=== PATIENT | female | born 1950 | race Caucasian/White ===

== ENCOUNTER → 2016-04-24 | Outpatient (CLI) | payer MEDICARE ==
[~2016-04-24] MED LIST: MELA1CAP2 PO; TRAM50TA2 PO
--- NOTE | 2016-04-25 06:27 | REP ---
Chest x-ray: Two views. History: Cough for a week. Comparison chest x-ray is from 06/30/2015. Findings: There are clips in right upper quadrant of the abdomen. Heart is not enlarged. Lungs are symmetrically aerated and free of infiltrate. Pleural angles are sharp. The aorta is calcific. No significant bony abnormality. Impression: No active disease. Signed by Ahmet Sumner MD 04/25/2016 10:04 A
== END ==
LOC: M WUC 18:17
PROVIDERS: ATTEND Physician Assistant
DX: R05 Cough (principal)

== ENCOUNTER → 2016-09-01 | Outpatient (CLI) | payer MEDICARE ==
[~2016-09-01] MED LIST changes: +CETI10TA PO; +OXYB5TAB10 PO; +POTA10CA PO; +TYLE325T5 PO
[2016-09-01 12:04] LABS: ANION GAP 2 MEQ/L (8-16); BLOOD UREA NITROGEN 7 MG/DL (7-18); CARBON DIOXIDE LEVEL 34 MEQ/L (21-32); CHLORIDE LEVEL 107 MEQ/L (98-107); CREATININE FOR GFR 0.53 MG/DL (0.55-1.02); GLOMERULAR FILTRATION RATE > 60.0 (>45); GLUCOSE, FASTING 84 MG/DL (80-110); SODIUM LEVEL 143 MEQ/L (136-145)
[2016-09-01 12:06] LABS: POTASSIUM SERUM 5.4 MEQ/L (3.5-5.1)
== END ==
LOC: M WUC 10:18
PROVIDERS: ATTEND Ophthalmology
DX: H02.422 Myogenic ptosis of left eyelid (principal); H02.834 Dermatochalasis of left upper eyelid; H02.831 Dermatochalasis of right upper eyelid

== ENCOUNTER → 2016-09-04 | Outpatient (REF) | payer MEDICARE ==
[2016-09-04 17:58] LABS: ANION GAP 7 MEQ/L (8-16); BLOOD UREA NITROGEN 11 MG/DL (7-18); CALCIUM LEVEL 9.1 MG/DL (8.8-10.2); CARBON DIOXIDE LEVEL 29 MEQ/L (21-32); CHLORIDE LEVEL 105 MEQ/L (98-107); CREATININE FOR GFR 0.59 MG/DL (0.55-1.02); GLOMERULAR FILTRATION RATE > 60.0 (>45); GLUCOSE, FASTING 105 MG/DL (80-110); POTASSIUM SERUM 4.5 MEQ/L (3.5-5.1); SODIUM LEVEL 141 MEQ/L (136-145)
== END ==
LOC: M SFHCPLAZ 12:44
PROVIDERS: ATTEND Family Medicine
DX: E87.5 Hyperkalemia (principal)

== ENCOUNTER → 2016-11-17 | Outpatient (REF) | payer MEDICARE | LOC: M LAB REF 15:43 | PROVIDERS: ATTEND Physician Assistant | DX: J02.9 Acute pharyngitis, unspecified (principal) ==

== ENCOUNTER 2016-11-23 07:46 | Inpatient (IN) | payer MEDICARE ==
[~2016-11-23] VITALS: Ht 170.2 cm; Wt 69.6 kg
[~2016-11-23 07:46] MED LIST changes: -CETI10TA PO; -OXYB5TAB10 PO; -POTA10CA PO; -TYLE325T5 PO
[2016-11-23] MEDS ORDERED: OXYB5TAB10 PO (07:59)
[2016-11-23] MEDS ORDERED: ACETAMINOPHEN TAB 650MG DOSE (2X325MG) PO ONE (08:15)
[2016-11-23 08:47] LABS: BASO % 0.4 % (0.0-1.0); EOS % 0.4 % (0.0-3.0); IMMATURE GRANULOCYTE % 0.3 % (0-0); LYMPH # 0.4 10^3/uL (1.5-4.5); LYMPH % 5.5 % (24.0-44.0); MEAN CORPUSCULAR HEMOGLOBIN 30.1 pg (27.0-33.0); MEAN CORPUSCULAR HGB CONC 33.3 g/dl (32.0-36.5); MEAN CORPUSCULAR VOLUME 90.5 fl (80.0-96.0); MONO # 0.4 10^3/uL (0.0-0.8); MONO % 5.5 % (0.0-5.0); NEUTROPHILS # 6.7 10^3/uL (1.8-7.7); NEUTROPHILS % 87.9 % (36.0-66.0); PLATELET COUNT, AUTOMATED 174 10^3/uL (150-450); RED CELL DISTRIBUTION WIDTH 12.8 % (11.5-14.5); WHITE BLOOD COUNT 7.7 10^3/uL (4.0-10.0)
--- NOTE | 2016-11-23 08:58 | REP ---
Portable chest x-ray: Single view. History: Dyspnea and cough. Comparison study August 01, 2016. Findings: EKG monitoring electrodes overlie the chest. Heart is not enlarged. Pulmonary vasculature is not increased. Pleural angles are sharp. No significant bony abnormality is seen. Impression: No active disease. Signed by Ahmet Sumner MD 11/23/2016 11:19 A
[2016-11-23] MEDS: guaiFENesin ER 600 MG TAB PO SCH ×2 (09:00→20:07)
[2016-11-23 09:20] LABS: ALBUMIN 3.7 GM/DL (3.2-5.2); ALBUMIN/GLOBULIN RATIO 1.23 (1.00-1.93); ALKALINE PHOSPHATASE 122 U/L (45-117); ALT/SGPT 64 U/L (12-78); ANION GAP 9 MEQ/L (8-16); AST/SGOT 82 U/L (15-37); BILIRUBIN,DIRECT 0.2 MG/DL (0.0-0.2); BILIRUBIN,TOTAL 0.6 MG/DL (0.2-1.0); BLOOD UREA NITROGEN 8 MG/DL (7-18); CALCIUM LEVEL 8.7 MG/DL (8.8-10.2); CARBON DIOXIDE LEVEL 29 MEQ/L (21-32); CHLORIDE LEVEL 101 MEQ/L (98-107); CREATININE FOR GFR 0.57 MG/DL (0.55-1.02); GLOMERULAR FILTRATION RATE > 60.0 (>45); GLUCOSE, FASTING 94 MG/DL (80-110); POTASSIUM SERUM 3.8 MEQ/L (3.5-5.1); SODIUM LEVEL 139 MEQ/L (136-145); TOTAL PROTEIN 6.7 GM/DL (6.4-8.2)
--- NOTE | 2016-11-23 11:14 | REP ---
CT of the chest without IV contrast: Comparison is the portable plain film study performed earlier today. There are no infiltrates or effusions. There are no masses or nodules. There is minor dependent atelectasis in the posterior lung toth with the patient supine on the scanning table. There is no mediastinal adenopathy. No axillary adenopathy. In the absence of IV contrast the study is insensitive for hilar adenopathy. The thoracic aorta is unremarkable except for occasional calcified atheroma. Cardiac size is normal. There is no pericardial effusion. Within the visualized upper abdomen. There are surgical clips in the gallbladder fossa. The visualized upper abdominal contents are otherwise unremarkable. Impression: Essentially negative CT study of the chest. There are no infiltrates, masses or effusions. There is minor discoid atelectasis in the posterior lung toth as described. Signed by Jm Malik MD 11/23/2016 11:06 A
[2016-11-23] MEDS ORDERED: SODIUM CHLORIDE 0.9% 1000 ML IV ONE (12:45)
[2016-11-23] MEDS ORDERED: TYLE325T5 PO (12:58)
[2016-11-23] MEDS ORDERED: CETI10TA PO (12:58)
[2016-11-23] MEDS ORDERED: ONDANSETRON 4MG/2ML VIAL (J2405) IV PRN (13:15)
[2016-11-23] MEDS ORDERED: IPRATROPIUM 0.5MG/ALBUTEROL 2.5MG INH SOL UD 3ML (DUONEB)(J7620) NEB PRN (13:15)
[2016-11-23] MEDS ORDERED: PERCOCET 5MG/325MG TAB PO PRN (13:15)
--- NOTE | 2016-11-23 13:54 | REP ---
Bilateral lower extremity Duplex Doppler venous ultrasound: Real time compression and duplex Doppler interrogation of the bilateral lower extremity deep venous system is performed. Bilaterally, the common femoral, superficial femoral and popliteal veins are fully compressible with transducer pressure and demonstrate normal spontaneous and phasic flow, without evidence of deep venous thrombosis. Impression: No evidence of deep venous thrombosis of the bilateral lower extremity femoral popliteal venous system. Signed by Jm Agustin MD 11/23/2016 01:46 P
--- NOTE | 2016-11-23 13:58 | HPE ---
DATE OF ADMISSION: 11/23/2016 PRIMARY CARE PHYSICIAN: Janet Benoit. CHIEF COMPLAINT: Shortness of breath. HISTORY OF PRESENT ILLNESS: The patient is a 66-year-old female with past one week of progressively worsening dyspnea on exertion associated with some chest pain. She also describes back pain and pain throughout her legs bilaterally. 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 There have been young children who have been sick. She lives at home with her sister. She reported has been having fever since yesterday, was so weak she could not stand which prompted her to present to the emergency room today. At the present time, she feels no different than the time of her arrival. She tells me she felt the same way this past summer when she was admitted at [facility] and told that she had sepsis secondary to pneumonia. She tells me that she feels the exact same way as she did at that point in time. PAST MEDICAL HISTORY: Urine urge incontinence. Environmental allergies. Fibromyalgia. ALLERGIES: SHRIMP, CONTRAST DYE, PENICILLIN. PAST SURGICAL HISTORY: Cholecystectomy 1995. Hysterectomy 1995. Right cataract surgery 2014. Left cataract surgery 2014. Eye lid surgery times four. Colonoscopy. section. Hernia repair. SOCIAL HISTORY: She has a 55 pack year tobacco history. Lives with her sister. Is a knitting teacher who is accompanied in the emergency room by two of her sisters and one of her close friends. HOME MEDICATIONS: - oxybutynin 5 mg by mouth twice daily started within the past one week - acetaminophen 650 mg four times daily as needed pain - [id number] mg by mouth daily PHYSICAL EXAMINATION: Temperature 102.1, respiratory rate 18, heart rate 84, blood pressure 139/67, 02 saturation 94% on 2 liters nasal cannula. General: She is an elderly female who appears older than her stated age. She is lying flat in bed. She appears lethargic, quite fatigued. Not acutely dyspneic. HEENT: Cranial nerves II-XII are grossly intact. She has moist mucous membranes. No cervical lymphadenopathy appreciated. No pharyngeal exudates. Cardiovascular exam: S1, S2 regular. Respiratory exam: She has prolonged expiratory phase with no audible wheeze. She does have pursed lips upon expiration and is somewhat barrel chested. Abdominal exam is benign. Extremities: No clubbing, cyanosis or appreciable edema. Exquisite tenderness out of proportion on palpation of her pretibial area and bilateral thighs. She has a 5 mm superficial ulcer in the right inguinal region mildly erythematous but does not appear to be acutely infected. Tenderness along her lumbar paraspinal muscles. No midline tenderness. LABORATORY STUDIES: WBC 7.7, hemoglobin 13.7, platelet count 174. Chemistry panel: Sodium 139, potassium 3.8, chloride 101, bicarbonate 29, BUN 8, creatinine 0.5. AST slightly elevated at 82. Alkaline phosphatase remained at 122. TSH is slightly depressed at 0.348. Microbiology: Influenza swab was negative. Sputum culture is negative. Blood cultures are drawn and pending. Respiratory, PCR panel is pending. She did have a CT scan of the chest which was essentially a negative CT study of the chest. No infiltrates, masses or effusions. Minor discoid atelectasis in the posterior lung toth. ASSESSMENT AND PLAN: This is a 66-year-old female with shortness of breath and fever. PROBLEMS: 1. Shortness of breath, fever and body aches. This appears to be most consistent with a viral upper respiratory infection. She does have some mild LFT abnormalities which could also be attributed to a viral infection. Respiratory and PCR panel is currently pending. Given the lack of leukocytosis, significant sepsis picture, at this time I will treat her supportively and hold off on any antibiotics. Followup her cultures and begin antibiotics if needed. Acetaminophen as needed. For the time being, I will stop her oxybutynin as this was a new medication for her so her shortness of breath may be related to this. My suspicious for pulmonary embolism is quite low but we will check a duplex of the lower extremities given her pain. I will checked an ambulating oxygen saturation in the morning. She has a significant tobacco history. She may have some mild undiagnosed chronic obstructive pulmonary disease (COPD). I will provide her with nebulizer treatments in order to best optimize her respiratory status. Will check an ESR, CMP and admit her to progressive care unit and trend her troponins. Should her workup be negative and she not require any oxygen, I suspect she may be able to discharged home as early as tomorrow. She will be admitted to observation status to Dr. Mckeon's service. 2. Urge incontinence. We are holding her oxybutynin. could consider resuming it when improved versus trying alternative agent. 3. Environmental allergies. Continue with sertraline. 4. Deep venous thrombosis (DVT) prophylaxis. She will be on Lovenox. MTDD
[2016-11-23] MEDS ORDERED: NS 1,000 ML IV SCH (14:00)
[2016-11-23 14:15] VITALS: BP 129/60
[2016-11-23] MEDS: IBUPROFEN 400 MG TAB PO SCH ×2 (14:18→21:14)
[2016-11-23 15:10] LABS: THYROXINE (T4) 9.2 UG/DL (4.5-12.0)
[2016-11-23 16:00] VITALS: BP 128/60
[2016-11-23 17:49] VITALS: BP 120/56; PULSE 70
--- NOTE | 2016-11-23 19:35 | ECGEPIP ---
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
--- NOTE | 2016-11-23 19:37 | ECGEPIP ---
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
[2016-11-23 20:00] VITALS: BP_SYST 120; BP_SYST 126; BP_DIAS 56; BP_DIAS 58; PULSE 70
[2016-11-23] MEDS: IPRATROPIUM 0.5MG/ALBUTEROL 2.5MG INH SOL UD 3ML (DUONEB)(J7620) NEB SCH (20:00)
[2016-11-23] MEDS: ACETAMINOPHEN TAB 650MG DOSE (2X325MG) PO PRN (20:07)
[2016-11-24] VITALS: BP 119/63
[2016-11-24] MEDS: CEPACOL LOZENGE PO PRN ×2 (02:38→14:56)
[2016-11-24 04:00] VITALS: BP 118/58
[2016-11-24] MEDS: ACETAMINOPHEN TAB 650MG DOSE (2X325MG) PO PRN (04:26)
[2016-11-24] MEDS: IBUPROFEN 400 MG TAB PO SCH (05:16)
[2016-11-24 05:32] LABS: MEAN CORPUSCULAR HEMOGLOBIN 29.9 pg (27.0-33.0); MEAN CORPUSCULAR HGB CONC 32.6 g/dl (32.0-36.5); MEAN CORPUSCULAR VOLUME 91.8 fl (80.0-96.0); RED CELL DISTRIBUTION WIDTH 12.8 % (11.5-14.5); WHITE BLOOD COUNT 3.9 10^3/uL (4.0-10.0)
[2016-11-24 05:55] LABS: ALBUMIN/GLOBULIN RATIO 1.11 (1.00-1.93); ALKALINE PHOSPHATASE 131 U/L (45-117); ALT/SGPT 144 U/L (12-78); ANION GAP 7 MEQ/L (8-16); AST/SGOT 166 U/L (15-37); BILIRUBIN,TOTAL 0.3 MG/DL (0.2-1.0); BLOOD UREA NITROGEN 7 MG/DL (7-18); CALCIUM LEVEL 8.1 MG/DL (8.8-10.2); CARBON DIOXIDE LEVEL 27 MEQ/L (21-32); CHLORIDE LEVEL 103 MEQ/L (98-107); CREATININE FOR GFR 0.35 MG/DL (0.55-1.02); GLOMERULAR FILTRATION RATE > 60.0 (>45); GLUCOSE, FASTING 91 MG/DL (80-110); POTASSIUM SERUM 3.3 MEQ/L (3.5-5.1); SODIUM LEVEL 137 MEQ/L (136-145); TOTAL PROTEIN 5.7 GM/DL (6.4-8.2)
--- NOTE | 2016-11-24 06:04 | ECGEPIP ---
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
[2016-11-24 07:30] VITALS: BP 115/62
[2016-11-24] MEDS: guaiFENesin ER 600 MG TAB PO SCH ×2 (08:26→20:35)
[2016-11-24] MEDS: ENOXAPARIN 40 MG/0.4 ML SYRINGE (J1650) SC SCH (08:26)
[2016-11-24] MEDS: CETIRIZINE (ZyrTEC) 10 MG TAB PO SCH (08:27)
[2016-11-24] MEDS: IPRATROPIUM 0.5MG/ALBUTEROL 2.5MG INH SOL UD 3ML (DUONEB)(J7620) NEB SCH ×3 (08:35→20:07)
[2016-11-24 12:45] VITALS: BP 120/56
--- NOTE | 2016-11-24 14:28 | IPN ---
DATE: 11/24/2016 Jewels was admitted with shortness of breath. She has spasms and pains in her legs and was having some nonanginal sounding chest pain. She had sepsis with pneumonia so she came to the emergency room fearing she had a recurrence of this. Chest x-ray and CT scan of the chest have not shown any infiltrate, but she does have Rhinovirus/Enterovirus on respiratory panel. PHYSICAL EXAMINATION: Afebrile. Vital signs stable. Lungs clear. Heart regular rhythm. Abdomen soft. Nontender. No peripheral edema. Nontender to palpate thighs or calves. No joint effusions or swelling. LABS: White count 3.9, hemoglobin 11.6, platelets 140. Sed rate 11. Sodium 137, potassium 3.3, BUN 7, creatinine 0.3, glucose 91. AST and ALT both elevated. Bilirubin normal. IMPRESSION: 1. Viral syndrome with respiratory symptoms and myalgias. Symptomatic treatment only. She is on some Advil. I am going to give her a dose of Toradol due to the myalgias. CPK is low. 2. Abnormal liver function tests. Liver ultrasound ordered. Probably from the viral syndrome. 3. Hypokalemia. Supplemental potassium has been given. She should be stable for discharge tomorrow.
[2016-11-24] MEDS: KETOROLAC 30 MG/ML VIAL (J1885) IV PRN (14:56)
[2016-11-24] MEDS: POTASSIUM CHLORIDE 10 MEQ SR TABLET PO SCH ×2 (14:56→20:35)
[2016-11-24 15:55] VITALS: BP 126/66
--- NOTE | 2016-11-24 17:33 | ECGEPIP ---
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
--- NOTE | 2016-11-24 17:59 | REP ---
REASON FOR EXAM: Elevated LFTs. COMPARISON: None. The patient is status-post cholecystectomy. Multiple ultrasonographic images of the liver show the hepatic parenchymal echo pattern to be within normal limits. There is no intrahepatic ductal dilatation. The common bile is mildly dilated at 1.3 cm but this is at least in part secondary to the patient's post cholecystectomy state. The imaged pancreas and right kidney are normal. IMPRESSION: There is evidence of mild common bile duct dilatation as described above but due to the patient status-post cholecystectomy state this could be within normal limits and needs to be correlated clinically with appropriate followup. If necessary obtain MRCP for further evaluation. Signed by Ernie Farley DO 11/24/2016 07:17 P
[2016-11-24 21:26] VITALS: BP 126/58
[2016-11-25] MEDS: KETOROLAC 30 MG/ML VIAL (J1885) IV PRN ×2 (00:14→09:10)
[2016-11-25 00:34] VITALS: BP 135/66
[2016-11-25] MEDS: IPRATROPIUM 0.5MG/ALBUTEROL 2.5MG INH SOL UD 3ML (DUONEB)(J7620) NEB SCH ×3 (02:00→14:00)
[2016-11-25] MEDS: ACETAMINOPHEN TAB 650MG DOSE (2X325MG) PO PRN (02:58)
[2016-11-25 03:56] VITALS: BP 139/65
[2016-11-25 05:42] LABS: MEAN CORPUSCULAR HGB CONC 32.4 g/dl (32.0-36.5); MEAN CORPUSCULAR VOLUME 92.7 fl (80.0-96.0); RED CELL DISTRIBUTION WIDTH 13.1 % (11.5-14.5); WHITE BLOOD COUNT 6.1 10^3/uL (4.0-10.0)
[2016-11-25 06:01] LABS: ALBUMIN 2.9 GM/DL (3.2-5.2); ALKALINE PHOSPHATASE 122 U/L (45-117); ALT/SGPT 90 U/L (12-78); ANION GAP 8 MEQ/L (8-16); AST/SGOT 57 U/L (15-37); BILIRUBIN,TOTAL 0.2 MG/DL (0.2-1.0); CALCIUM LEVEL 7.8 MG/DL (8.8-10.2); CARBON DIOXIDE LEVEL 24 MEQ/L (21-32); CHLORIDE LEVEL 108 MEQ/L (98-107); GLOMERULAR FILTRATION RATE > 60.0 (>45); GLUCOSE, FASTING 84 MG/DL (80-110); MAGNESIUM LEVEL 1.9 MG/DL (1.8-2.4); SODIUM LEVEL 140 MEQ/L (136-145); TOTAL PROTEIN 5.8 GM/DL (6.4-8.2)
[2016-11-25 06:18] LABS: BLOOD UREA NITROGEN 12 MG/DL (7-18); POTASSIUM SERUM 4.2 MEQ/L (3.5-5.1)
--- NOTE | 2016-11-25 07:51 | EEG ---
DATE OF PROCEDURE: 11/24/2016 REFERRING PHYSICIAN: Dr. Andrea Mckeon DIAGNOSIS: Unresponsiveness. EEG NUMBER: [id number]. HISTORY: Patient is a 66-year-old woman who was admitted at [facility] due to an episode of passing out. She is currently taking ibuprofen and Lovenox, Percocet etc. TECHNICAL DESCRIPTION: This digital EEG was recorded by 21 scalp, ear and two EKG electrodes and was reviewed in bipolar and referential montages following reformatting in 10-20 international electrode placement system. INTERPRETATION: Patient was noted to be in awake and drowsy states during this EEG. Resting awake background rhythm consisted of well-formed posterior dominant rhythm with anterior/posterior gradient comprising of 9 Hz alpha activity measuring 15-40 microvolts in amplitude, which was symmetric and reactive to eye opening. Attenuation of posterior dominant was seen during transition into drowsiness. Anteriorly low voltage and mixed frequency activity was noted. Stage I and II sleep were reviewed and were symmetric bilaterally. Hyperventilation could not be performed. Photic stimulation 3-30 Hz elicited symmetric photic driving especially at mid frequencies. No focal, lateralizing or epileptiform abnormalities were seen. No clinical or electrographic seizures were recorded. EKG revealed normal sinus rhythm. CONCLUSION: This EEG in awake, drowsy states, stage I and II sleep is within normal limits.
[2016-11-25 08:00] VITALS: BP 143/63
[2016-11-25] MEDS: CETIRIZINE (ZyrTEC) 10 MG TAB PO SCH (09:07)
[2016-11-25] MEDS: guaiFENesin ER 600 MG TAB PO SCH (09:08)
[2016-11-25] MEDS: ENOXAPARIN 40 MG/0.4 ML SYRINGE (J1650) SC SCH (09:08)
[2016-11-25] MEDS: POTASSIUM CHLORIDE 10 MEQ SR TABLET PO SCH (09:09)
[2016-11-25] MEDS: CEPACOL LOZENGE PO PRN (11:17)
[2016-11-25 12:00] VITALS: BP 142/72
--- NOTE | 2016-11-25 14:14 | DS.PDOC ---
Discharge Summary General Date of Admission Nov 24, 2016 at 13:32 Date of Discharge 11/25/2016 Primary Care Physician: JANET BENOIT MD Attending Physician: Rhys Cuellar MD Discharge Summary ADMITTING DIAGNOSES: 1. Dyspnea, with associated fever and body aches. 2. Urge incontinence. 3. Environmental allergies. DISCHARGE DIAGNOSES: 1. Viral syndrome with respiratory symptoms and myalgias. 2. Abnormal liver function tests. 3. Hypokalemia. PROCEDURES PERFORMED DURING STAY: Electroencephalogram. ADMISSION HISTORY: Ms. Cassandra oconnor came to the emergency department with symptoms that felt to her similar to when she had pneumonia 3-4 months ago. She had an episode of lightheadedness associated with this and was concerned. Please see the admission history and physical for the remaining details. HOSPITAL COURSE: Jewels was observed in the hospital and had no further symptoms. An EEG was done that was normal. Her respiratory panel returned rhinovirus and enterovirus. DISCHARGE CONDITION: Stable. FOLLOW-UP: Prior to discharge an appointment was scheduled with Dr. Janet Benoit on 12/01/16 at 11:00 AM. DIET: As tolerated. ACTIVITY: As tolerated. DISCHARGE MEDICATIONS: Please see below. ALLERGIES: Please see below. LABORATORY DATA: Please see below. IMAGING: Chest x-ray, chest CT, lower extremity venous Doppler ultrasound, liver ultrasound Vital Signs/I&Os Vital Signs Date Time Temp Pulse Resp B/P (MAP) Pulse Ox O2 Delivery O2 Flow Rate FiO2 11/25/16 12:00 98.6 79 18 142/72 (95) 95 Room Air 11/24/16 07:30 3.0 I&O- Last 24 Hours up to 6 AM 11/26/16 06:00 Intake Total 240 ml Balance 240 ml Laboratory Data Labs 24H Laboratory Tests 2 11/25/16 04:59: Anion Gap 8, Glomerular Filtration Rate > 60.0, Blood Urea Nitrogen 12#, Creatinine 0.40L, Sodium Level 140, Potassium Level 4.2#, Chloride Level 108H, Carbon Dioxide Level 24, Calcium Level 7.8L, Aspartate Amino Transf (AST/SGOT) 57H, Alanine Aminotransferase (ALT/SGPT) 90H, Alkaline Phosphatase 122H, Total Bilirubin 0.2, Total Protein 5.8L, Albumin 2.9L, Magnesium Level 1.9, Albumin/ Globulin Ratio 1.00 CBC/BMP Laboratory Tests 11/25/16 04:59 Red Blood Count 3.83 L, Mean Corpuscular Volume 92.7, Mean Corpuscular Hemoglobin 30.0, Mean Corpuscular Hemoglobin Concent 32.4, Red Cell Distribution Width 13.1, Calcium Level 7.8 L, Aspartate Amino Transf (AST/SGOT) 57 H, Alanine Aminotransferase (ALT/SGPT) 90 H, Alkaline Phosphatase 122 H, Total Bilirubin 0.2, Total Protein 5.8 L, Albumin 2.9 L Microbiology Microbiology 11/23/16 Blood Culture - Preliminary, Resulted No Growth after 48 hours. All Specime... 11/23/16 Blood Culture - Preliminary, Resulted No Growth after 48 hours. All Specime... 11/23/16 Gram Stain - Final, Complete 11/23/16 Sputum Culture - Final, Complete 11/23/16 Influenza Virus Type A Antigen - Final, Complete 11/23/16 Influenza Virus Type B Antigen - Final, Complete 11/23/16 Respiratory Virus Panel (PCR) (CUAUHTEMOC) - Final, Complete Human Rhinovirus/Enterovirus Discharge Medications Scheduled Cetirizine HCl (Cetirizine HCl) 10 Mg Tab, 10 MG PO DAILY, (Reported) Oxybutynin Chloride (Oxybutynin Chloride) 5 Mg Tab, 5 MG PO BID, (Reported) Potassium Chloride (Klor-Con M10) 10 Meq Tabcr, 10 MEQ PO DAILY Scheduled PRN Acetaminophen (Tylenol) 325 Mg Tab, 650 MG PO QID PRN for PAIN, (Reported) Allergies Coded Allergies: Iodine (Verified Allergy, Unknown, 04/15/14) Penicillins (Verified Allergy, Unknown, RASH, 04/26/15) Shrimp (Verified Allergy, Unknown, ANAPHYLAXIS, 04/26/15) Rhys Cuellar MD Nov 25, 2016 14:14
[2016-11-25] MEDS ORDERED: POTA10CA PO (14:25)
== END 2016-11-25 14:59 | disposition home or self-care (01) | DRG 153 ==
LOC: M ED 07:46 → M ED INP 13:15 → M PCU 19:05 → OBSVTOIN 11-24 13:32 → M PCU 11-25 03:13
PROVIDERS: ADMIT Internal Medicine; ATTEND Family Medicine
DX: J06.9 Acute upper respiratory infection, unspecified (principal); B34.8 Other viral infections of unspecified site; R94.5 Abnormal results of liver function studies; M79.7 Fibromyalgia; E87.6 Hypokalemia; N39.41 Urge incontinence; Z88.0 Allergy status to penicillin; Z91.041 Radiographic dye allergy status; Z91.013 Allergy to seafood; Z90.49 Acquired absence of other specified parts of digestive tract; Z90.710 Acquired absence of both cervix and uterus; Z98.41 Cataract extraction status, right eye; Z98.42 Cataract extraction status, left eye; F17.210 Nicotine dependence, cigarettes, uncomplicated; Z79.899 Other long term (current) drug therapy

== ENCOUNTER 2017-01-03 10:25 | Emergency (ER) | payer MEDICARE ==
[~2017-01-03] VITALS: Ht 167.6 cm; Wt 67.2 kg
[~2017-01-03 10:25] MED LIST changes: +CETI10TA PO; +OXYB5TAB10 PO; +POTA10CA PO; +TYLE325T5 PO
[2017-01-03 11:10] LABS: BASO % 0.2 % (0.0-1.0); EOS # 0.1 10^3/uL (0.0-0.50); EOS % 0.7 % (0.0-3.0); IMMATURE GRANULOCYTE % 0.4 % (0-0); LYMPH # 0.7 10^3/uL (1.5-4.5); LYMPH % 5.2 % (24.0-44.0); MEAN CORPUSCULAR HEMOGLOBIN 29.5 pg (27.0-33.0); MEAN CORPUSCULAR HGB CONC 32.5 g/dl (32.0-36.5); MONO # 0.3 10^3/uL (0.0-0.8); MONO % 2.3 % (0.0-5.0); NEUTROPHILS # 12.3 10^3/uL (1.8-7.7); NEUTROPHILS % 91.2 % (36.0-66.0); PLATELET COUNT, AUTOMATED 299 10^3/uL (150-450); RED CELL DISTRIBUTION WIDTH 12.5 % (11.5-14.5); WHITE BLOOD COUNT 13.5 10^3/uL (4.0-10.0)
[2017-01-03 11:34] LABS: ANION GAP 3 MEQ/L (8-16); BLOOD UREA NITROGEN 9 MG/DL (7-18); CALCIUM LEVEL 8.5 MG/DL (8.8-10.2); CARBON DIOXIDE LEVEL 31 MEQ/L (21-32); CHLORIDE LEVEL 104 MEQ/L (98-107); GLOMERULAR FILTRATION RATE > 60.0 (>45); GLUCOSE, FASTING 95 MG/DL (80-110); POTASSIUM SERUM 4.2 MEQ/L (3.5-5.1); SODIUM LEVEL 138 MEQ/L (136-145)
--- NOTE | 2017-01-03 11:46 | REP ---
Clinical: Chest pain . Comparison: 11/23/2016 . Findings: The mediastinum and cardiac silhouette are stable and within normal limits for portable technique. The lung toht are clear without acute consolidation, effusion, or pneumothorax. Skeletal structures are intact. Impression: No acute cardiopulmonary process appreciated. Signed by Nilesh Martin MD 01/03/2017 11:37 A
[2017-01-03] MEDS ORDERED: methylPREDNISolone INJ 125 MG/2 ML VIAL (J2930) IV ONE (12:45)
--- NOTE | 2017-01-03 14:23 | ECGEPIP ---
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
--- NOTE | 2017-01-03 14:24 | ECGEPIP ---
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
[2017-01-03] MEDS ORDERED: PRED10TA2 PO (16:01)
[2017-01-03 16:14] VITALS: BP 126/56
== END 2017-01-03 16:24 | disposition home or self-care (01) ==
LOC: M ED 10:25
DX: J20.9 Acute bronchitis, unspecified (principal); J01.90 Acute sinusitis, unspecified; M79.7 Fibromyalgia; F17.210 Nicotine dependence, cigarettes, uncomplicated
CPT/HCPCS: 36415; 71010; 80048; 82550; 82553; 83880; 84484; 85025; 93005; 93041; 94760; 96374; 99285; J2930

== ENCOUNTER → 2017-03-02 | Outpatient (CLI) | payer MEDICARE ==
[2017-03-02 16:29] LABS: ANION GAP 6 MEQ/L (8-16); BLOOD UREA NITROGEN 7 MG/DL (7-18); CARBON DIOXIDE LEVEL 31 MEQ/L (21-32); CHLORIDE LEVEL 100 MEQ/L (98-107); GLOMERULAR FILTRATION RATE > 60.0 (>45); GLUCOSE, FASTING 97 MG/DL (80-110); POTASSIUM SERUM 4.4 MEQ/L (3.5-5.1); SODIUM LEVEL 137 MEQ/L (136-145)
[2017-03-02 16:33] LABS: BASO % 0.3 % (0.0-1.0); EOS # 0.1 10^3/uL (0.0-0.50); HEMATOCRIT 41.6 % (36.0-47.0); HEMOGLOBIN 13.3 g/dl (12.0-16.0); IMMATURE GRANULOCYTE # 0.1 10^3/uL (0-0); IMMATURE GRANULOCYTE % 0.4 % (0-0); LYMPH # 1.6 10^3/uL (1.5-4.5); LYMPH % 11.3 % (24.0-44.0); MEAN CORPUSCULAR HEMOGLOBIN 29.6 pg (27.0-33.0); MEAN CORPUSCULAR VOLUME 92.4 fl (80.0-96.0); MONO % 7.3 % (0.0-5.0); NEUTROPHILS # 11.2 10^3/uL (1.8-7.7); NEUTROPHILS % 79.7 % (36.0-66.0); PLATELET COUNT, AUTOMATED 215 10^3/uL (150-450); RED CELL DISTRIBUTION WIDTH 12.9 % (11.5-14.5); WHITE BLOOD COUNT 14.1 10^3/uL (4.0-10.0)
== END ==
LOC: M WUC 12:31
DX: J01.10 Acute frontal sinusitis, unspecified (principal); R07.81 Pleurodynia
CPT/HCPCS: 80048

== ENCOUNTER → 2017-10-07 | Outpatient (CLI) | payer MEDICARE ==
[2017-10-07 17:34] LABS: CHOLESTEROL LEVEL 212 MG/DL (<200); CHOLESTEROL RISK RATIO 3.719 (<5); GLUCOSE,RANDOM 88 MG/DL (LESS THAN 200); HDL CHOLESTEROL 57 MG/DL (>40); LDL CHOLESTEROL 132.6 MG/DL (<100); NON-HDL-C 155 MG/DL; TRIGLYCERIDES LEVEL 112 MG/DL (<150)
== END ==
LOC: M LRY 10:42
DX: Z13.220 Encounter for screening for lipoid disorders (principal); Z13.1 Encounter for screening for diabetes mellitus; Z79.899 Other long term (current) drug therapy
CPT/HCPCS: 82947

== ENCOUNTER → 2018-08-01 | Outpatient (CLI) | payer MEDICARE ==
[~2018-08-01] MED LIST changes: +KLOR10TA76 PO; -POTA10CA PO; +PRED10TA2 PO
--- NOTE | 2018-08-01 14:37 | REP ---
Show chest two views HISTORY: Cough Comparison: 03/02/2017 The lungs are hyperinflated. The lungs are clear. A small right pleural effusion is present. The heart is normal in size. The pulmonary vasculature is normal in appearance. The bony structure is intact. IMPRESSION: Small right pleural effusion. Electronically Signed by Javi Barron MD 08/01/2018 02:29 P
== END ==
LOC: M WUC 13:56
PROVIDERS: ATTEND Physician Assistant
DX: J90 Pleural effusion, not elsewhere classified (principal)

== ENCOUNTER → 2018-08-08 | Outpatient (CLI) | payer MEDICARE ==
--- NOTE | 2018-08-08 18:26 | REP ---
Chest x-ray: Two views. History: Acute bronchitis. Comparison study: August 01, 2018. Findings: The lungs remain hyperinflated but free of infiltrate. There is blunting of the right lateral and posterior pleural angles indicating a small right pleural effusion. This is unchanged. The left pleural angles appear sharp. The cardiothoracic ratio is normal measured at 45.2% on the frontal view. Pulmonary vasculature is not increased. There is diffuse osteopenia. Thoracic vertebral body heights are preserved. The thoracic aorta shows some calcification. Impression: Blunting of the right lateral pleural angle indicating a small right effusion. Hyperinflation. Otherwise no active disease. Electronically Signed by Ahmet Sumner MD 08/08/2018 07:57 P
== END ==
LOC: M WUC 17:06
PROVIDERS: ATTEND Physician Assistant
DX: R91.8 Other nonspecific abnormal finding of lung field (principal)

== ENCOUNTER → 2018-10-01 | Outpatient (CLI) | payer MEDICARE ==
[2018-10-01 17:00] LABS: ALBUMIN 3.9 GM/DL (3.2-5.2); BILIRUBIN,DIRECT 0.1 MG/DL (0.0-0.2); BILIRUBIN,TOTAL 0.4 MG/DL (0.2-1.0); TOTAL PROTEIN 6.5 GM/DL (6.4-8.2)
--- NOTE | 2018-10-02 08:28 | REP ---
REASON: Followup pleural effusion. COMPARISON: 08/08/2018 The patchy opacity seen previously in the right lower lobe with cardiophrenic angle and costophrenic angle blunting has resolved. The lung toth are clear but hyperexpanded status quo. The heart is not enlarged. The osseous structures are stable and intact. IMPRESSION: No acute cardiopulmonary disease. Improvement as described above. Electronically Signed by Ernie Farley DO 10/02/2018 09:46 A
== END ==
LOC: M WUC 13:33
PROVIDERS: ATTEND Family Medicine
DX: J90 Pleural effusion, not elsewhere classified (principal); E78.2 Mixed hyperlipidemia

== ENCOUNTER 2018-12-17 08:02 | Day surgery (SDC) | payer MEDICARE ==
[~2018-12-17] VITALS: Ht 160 cm; Wt 59.4 kg
[~2018-12-17 08:02] MED LIST changes: +DIPH25CA32 PO; +GNP650TA8 PO; +NS 1,000 ML IV ONE; +PRAV40TA2 PO; +VENTAER INH
[2018-12-17] MEDS ORDERED: PROPOFOL 200 MG/20 ML VIAL As Ordered ONE ×3 (09:32→09:56)
[2018-12-17] MEDS ORDERED: LIDOCAINE 2% INJ 100 MG/5 ML SDV (FOR ANES.) As Ordered ONE (09:32)
--- NOTE | 2018-12-17 10:09 | ROOR ---
Patient Name: Jewels Trujillo Procedure Date: 12/17/2018 9:29 AM Date of : 1950 Age: 68 Room: [facility] Gender: Female Note Status: Finalized Procedure: Total Colonoscopy to Cecum + Cold Snare Polypectomy + Hemoclip Indications: High risk colon cancer surveillance: Personal history of colonic polyps, Last colonoscopy: 2015 Providers: Jacob Barone MD Referring MD: Janet Benoit MD Requesting Provider: Medicines: Monitored Anesthesia Care Complications: No immediate complications. Procedure: Pre-Anesthesia Assessment: - The heart rate, respiratory rate, oxygen saturations, blood pressure, adequacy of pulmonary ventilation, and response to care were monitored throughout the procedure. The Colonoscope was introduced through the anus and advanced to the cecum, identified by appendiceal orifice and ileocecal valve. The colonoscopy was performed without difficulty. The patient tolerated the procedure well. The quality of the bowel preparation was excellent. Findings: The perianal and digital rectal examinations were normal. Non-bleeding internal hemorrhoids were found during retroflexion. The hemorrhoids were small and Grade I (internal hemorrhoids that do not prolapse). Multiple small and large-mouthed diverticula were found in the recto-sigmoid colon, sigmoid colon and descending colon. A small polyp was found in the mid ascending colon. The polyp was sessile. The polyp was removed with a jumbo cold forceps. Resection and retrieval were complete. Multiple sessile polyps were found at 60 cm proximal to the anus. The polyps were small in size. These polyps were removed with a cold snare. Resection and retrieval were complete. A small polyp was found at 30 cm proximal to the anus. The polyp was sessile. The polyp was removed with a cold snare. Resection and retrieval were complete. To prevent bleeding after the polypectomy, one hemostatic clip was successfully placed (MR conditional). There was no bleeding at the end of the procedure. The exam was otherwise without abnormality on direct and retroflexion views. Impression: - Non-bleeding internal hemorrhoids. - Diverticulosis in the recto-sigmoid colon, in the sigmoid colon and in the descending colon. - One small polyp in the mid ascending colon, removed with a jumbo cold forceps. Resected and retrieved. - Multiple small polyps at 60 cm proximal to the anus, removed with a cold snare. Resected and retrieved. - One small polyp at 30 cm proximal to the anus, removed with a cold snare. Resected and retrieved. Clip (MR conditional) was placed. - The examination was otherwise normal on direct and retroflexion views. - The exam was otherwise normal to the cecum. Recommendation: - Patient has a contact number available for emergencies. The signs and symptoms of potential delayed complications were discussed with the patient. Return to normal activities tomorrow. Written discharge instructions were provided to the patient. - High fiber diet. - Discharge patient to home. - Continue present medications. - Await pathology results. - Telephone GI clinic for pathology results in 1 week. - Repeat colonoscopy for surveillance based on pathology results. - Return to referring physician. - Check Portal Online for Path Results.([email or web address] - The findings and recommendations were discussed with the patient's family. Jacob Barone MD Jacob Barone MD 12/17/2018 10:09:13 AM Electronically signed by Jacob Barone MD Number of Addenda: 0 Note Initiated On: 12/17/2018 9:29 AM Estimated Blood Loss: Estimated blood loss: none.
[2018-12-17 10:45] VITALS: BP 143/63
== END 2018-12-17 10:52 | disposition home or self-care (01) ==
LOC: M OPP 08:02
PROVIDERS: ATTEND Internal Medicine Gastroenterology
DX: Z12.11 Encounter for screening for malignant neoplasm of colon (principal); Z86.010 Personal history of colon polyps; K64.0 First degree hemorrhoids; K63.5 Polyp of colon; K57.30 Diverticulosis of large intestine without perforation or abscess without bleeding; F17.210 Nicotine dependence, cigarettes, uncomplicated; Z79.891 Long term (current) use of opiate analgesic; Z79.899 Other long term (current) drug therapy; Z91.030 Bee allergy status; Z88.3 Allergy status to other anti-infective agents; Z88.5 Allergy status to narcotic agent

== ENCOUNTER → 2019-10-08 | Outpatient (CLI) | payer MEDICARE ==
[~2019-10-08] MED LIST changes: -NS 1,000 ML IV ONE
--- NOTE | 2019-11-17 08:55 | REP ---
LUMBAR SPINE SERIES: 5-VIEWS HISTORY: Sprain. Low back pain. COMPARISON: None. FINDINGS: There are surgical clips in the right upper quadrant of the abdomen. There is some diffuse osteopenia. Lumbar vertebral body heights are preserved. Alignment is normal. Disc spaces are maintained. There is some disc space narrowing at L3- 4 and L4-5. Vascular calcification is noted in a normal caliber aorta. There is no evidence of spondylolysis or spondylolisthesis. There is osteoarthritic facet narrowing and mild hypertrophy bilaterally at L5-S1 and to a lesser extent, at L4-5. Sacrum and SI joints are intact. Psoas margins are symmetric. IMPRESSION: Mild degenerative spondylosis changes. No acute bony abnormality. Diffuse osteopenia. MTDD
== END ==
LOC: M WUC 15:17
PROVIDERS: ATTEND Physician Assistant
DX: S33.5XXA Sprain of ligaments of lumbar spine, initial encounter (principal); M47.816 Spondylosis without myelopathy or radiculopathy, lumbar region; M85.88 Other specified disorders of bone density and structure, other site; X58.XXXA Exposure to other specified factors, initial encounter; Y92.9 Unspecified place or not applicable

== ENCOUNTER → 2019-11-21 | Outpatient (CLI) | payer MEDICARE ==
--- NOTE | 2019-11-21 10:44 | REPVR ---
PROCEDURE INFORMATION: Exam: MR Cervical Spine Without Contrast Exam date and time: 11/21/2019 8:49 AM Age: 69 years old Clinical indication: Pain; Cervicalgia; Additional info: Cervicalgia / pain thoracic spine ? compression [id number] 1 TECHNIQUE: Imaging protocol: Multiplanar magnetic resonance images of the cervical spine without contrast. COMPARISON: No relevant prior studies available. FINDINGS: Vertebrae: There is straightening of the cervical spine which could be secondary to positioning or muscle spasm. The cervical vertebral bodies are normal height and alignment.No acute fracture or dislocation is seen.The atlantoaxial articulation is normal. Spinal cord: The cervical spinal cord is normal in thickness and signal intensity.There is no cord compression or intramedullary signal abnormality. Spinal epidural space: There is no evidence for epidural mass or hemorrhage. C2-C3: No significant disc disease. No significant spinal stenosis. C3-C4: There is a mild diffuse posterior bulge causing mild effacement of the thecal sac.The facet joints demonstrate mild degenerative hypertrophy and sclerosis.There is mild bilateral foraminal stenosis. C4-C5: There is a mild diffuse posterior bulge causing mild effacement of the thecal sac.The facet joints demonstrate mild degenerative hypertrophy and sclerosis.There is mild bilateral foraminal stenosis. C5-C6: There is a mild diffuse posterior bulge causing mild effacement of the thecal sac. Small posterior central protrusion.The facet joints demonstrate moderate degenerative narrowing and sclerosis.There is no evidence of spinal canal narrowing. There is mild bilateral foraminal stenosis. C6-C7: Moderately reduced in height and T2 signal indicating degeneration. Mild degenerative endplate changes.There is a mild diffuse posterior bulge causing mild effacement of the thecal sac.The facet joints demonstrate moderate degenerative narrowing and sclerosis.There is no evidence of spinal canal narrowing.7 mm T2 hyperintense perineural cysts are noted in bilateral neural foramina causing compression of the exiting nerve roots. C7-T1: There is no significant degenerative disc herniation.The spinal canal and neural foramina are patent and without significant stenosis. Brain: The visualized brain parenchyma is unremarkable. Vertebral arteries: Expected flow voids in the vertebral arteries. Soft tissues: The prevertebral soft tissues appear normal. IMPRESSION: 1. MRI of the cervical spine reveals multilevel degenerative spondylitic changes and degenerative disc disease as described above. No acute fracture or dislocation is seen. 2. The cervical spinal cord is normal in thickness and signal intensity.There is no cord compression or intramedullary signal abnormality. Electronically signed by: Manny Johnson On 11/21/2019 10:44:08 AM
--- NOTE | 2019-11-28 12:41 | REP ---
THREE-PHASE BONE SCAN OF THE THORAX HISTORY: Rule out thoracic compression fracture. COMPARISON: Bone scan images are from a whole body study dated 06/16/2005. Lumbar spine radiograph images 10/08/2019. TECHNIQUE: 22.0 mCi of Technetium-99m MDP is injected and standard three-phase imaging is acquired with the field of view centered at the trunk. SCINTIGRAPHIC FINDINGS: Anterior and posterior flow study is unremarkable. Blood pool images demonstrate expected blood pool uptake in the mediastinum and early visceral uptake in the upper abdomen. No area of abnormal hyperemia. Delayed scan images demonstrate normal distribution of skeletal tracer with uptake in bilateral kidneys. There is no evidence of recent thoracic compression fracture or lumbar compression fracture deformity. No rib lesion. IMPRESSION: Normal distribution of skeletal tracer. No evidence of recent thoracic or upper lumbar compression deformity. MTDD
== END ==
LOC: M RAD 08:46
PROVIDERS: ATTEND Orthopaedic Surgery
DX: M50.21 Other cervical disc displacement, high cervical region (principal); M50.221 Other cervical disc displacement at C4-C5 level; M50.222 Other cervical disc displacement at C5-C6 level; M47.812 Spondylosis without myelopathy or radiculopathy, cervical region
CPT/HCPCS: 72141; 78315; A9503

== ENCOUNTER → 2020-05-18 | Outpatient (REF) | payer MEDICARE ==
[2020-05-18 17:36] LABS: ALBUMIN 4.1 GM/DL (3.2-5.2); ALT/SGPT 11 U/L (12-78); BILIRUBIN,TOTAL 0.4 MG/DL (0.2-1.0); BLOOD UREA NITROGEN 9 MG/DL (7-18); CALCIUM LEVEL 9.6 MG/DL (8.8-10.2); CARBON DIOXIDE LEVEL 32 MEQ/L (21-32); CHLORIDE LEVEL 105 MEQ/L (98-107); CHOLESTEROL LEVEL 217 MG/DL (<200); CHOLESTEROL RISK RATIO 2.855 (<5); CREATININE FOR GFR 0.49 MG/DL (0.55-1.30); GLOMERULAR FILTRATION RATE > 60.0 (>39); GLUCOSE, FASTING 92 MG/DL (70-100); HDL CHOLESTEROL 76 MG/DL (>40); LDL CHOLESTEROL 117 MG/DL (<100); NON-HDL-C 141 MG/DL; SODIUM LEVEL 141 MEQ/L (136-145); TOTAL PROTEIN 6.9 GM/DL (6.4-8.2); TRIGLYCERIDES LEVEL 121 MG/DL (<150)
== END ==
LOC: M SFHCPLAZ 13:48
PROVIDERS: ATTEND Family Medicine
DX: E78.2 Mixed hyperlipidemia (principal); Z13.1 Encounter for screening for diabetes mellitus; Z23 Encounter for immunization
CPT/HCPCS: 36415; 80053; 80061; 90732; G0009; G0463

== ENCOUNTER → 2021-04-01 | Outpatient (CLI) | payer MEDICARE ==
[~2021-04-01] MED LIST changes: -KLOR10TA76 PO; +POTA-136 PO
[2021-04-01 17:40] LABS: BLOOD UREA NITROGEN 7 MG/DL (7-18); CALCIUM LEVEL 9.3 MG/DL (8.8-10.2); CARBON DIOXIDE LEVEL 30 MEQ/L (21-32); CHLORIDE LEVEL 105 MEQ/L (98-107); CREATININE FOR GFR 0.54 MG/DL (0.55-1.30); GLOMERULAR FILTRATION RATE > 60.0 (>39); GLUCOSE, FASTING 85 MG/DL (70-100); POTASSIUM SERUM 4.7 MEQ/L (3.5-5.1); SODIUM LEVEL 141 MEQ/L (136-145)
== END ==
LOC: M PLALAB 14:31
PROVIDERS: ATTEND Family Medicine
DX: Z01.818 Encounter for other preprocedural examination (principal)

== ENCOUNTER → 2021-05-20 | Outpatient (CLI) | payer MEDICARE ==
[2021-05-20 15:31] LABS: ALBUMIN 3.8 GM/DL (3.2-5.2); ALT/SGPT 16 U/L (12-78); BILIRUBIN,TOTAL 0.6 MG/DL (0.2-1.0); BLOOD UREA NITROGEN 5 MG/DL (7-18); CALCIUM LEVEL 9.3 MG/DL (8.8-10.2); CARBON DIOXIDE LEVEL 34 MEQ/L (21-32); CHLORIDE LEVEL 107 MEQ/L (98-107); CHOLESTEROL LEVEL 199 MG/DL (<200); CHOLESTEROL RISK RATIO 2.802 (<5); CREATININE FOR GFR 0.54 MG/DL (0.55-1.30); GLOMERULAR FILTRATION RATE > 60.0 (>39); GLUCOSE, FASTING 91 MG/DL (70-100); HDL CHOLESTEROL 71 MG/DL (>40); LDL CHOLESTEROL 105 MG/DL (<100); NON-HDL-C 128 MG/DL; POTASSIUM SERUM 5.2 MEQ/L (3.5-5.1); SODIUM LEVEL 141 MEQ/L (136-145); TOTAL PROTEIN 6.8 GM/DL (6.4-8.2); TRIGLYCERIDES LEVEL 115 MG/DL (<150)
== END ==
LOC: M PLALAB 13:29
PROVIDERS: ATTEND Family Medicine
DX: E78.2 Mixed hyperlipidemia (principal)

== ENCOUNTER → 2021-07-14 | Outpatient (CLI) | payer MEDICARE ==
[2021-07-14 13:39] LABS: BLOOD UREA NITROGEN 10 MG/DL (7-18); CALCIUM LEVEL 9.2 MG/DL (8.8-10.2); CARBON DIOXIDE LEVEL 31 MEQ/L (21-32); CHLORIDE LEVEL 109 MEQ/L (98-107); CREATININE FOR GFR 0.54 MG/DL (0.55-1.30); GLOMERULAR FILTRATION RATE > 60.0 (>39); GLUCOSE, FASTING 93 MG/DL (70-100); POTASSIUM SERUM 4.4 MEQ/L (3.5-5.1); SODIUM LEVEL 144 MEQ/L (136-145)
== END ==
LOC: M PLALAB 09:26
PROVIDERS: ATTEND Family Medicine
DX: E87.5 Hyperkalemia (principal)

== ENCOUNTER → 2021-12-05 | Outpatient (CLI) | payer MEDICARE ==
[2021-12-05 17:25] LABS: HEMOGLOBIN A1c 5.4 %
[2021-12-05 17:31] LABS: BASO # 0.1 10^3/uL (0.0-0.2); BASO % 0.7 % (0.0-1.0); EOS # 0.1 10^3/uL (0.0-0.5); EOS % 1.1 % (0.0-3.0); HEMATOCRIT 43.6 % (36.0-47.0); HEMOGLOBIN 14.1 g/dl (12.0-15.5); LYMPH # 2.9 10^3/uL (1.5-5.0); LYMPH % 34.3 % (24.0-44.0); MEAN CORPUSCULAR HEMOGLOBIN 29.8 pg (27.0-33.0); MEAN CORPUSCULAR HGB CONC 32.3 g/dl (32.0-36.5); MEAN CORPUSCULAR VOLUME 92.2 fl (80.0-96.0); MONO # 0.5 10^3/uL (0.0-0.8); MONO % 5.3 % (2.0-8.0); NEUTROPHILS # 4.9 10^3/uL (1.5-8.5); NEUTROPHILS % 58.2 % (36.0-66.0); PLATELET COUNT, AUTOMATED 243 10^3/uL (150-450); RED BLOOD COUNT 4.73 10^6/uL (4.00-5.40); WHITE BLOOD COUNT 8.4 10^3/uL (4.0-10.0)
[2021-12-05 17:58] LABS: ALBUMIN 3.7 GM/DL (3.2-5.2); ALT/SGPT 13 U/L (12-78); BILIRUBIN,TOTAL 0.6 MG/DL (0.2-1.0); BLOOD UREA NITROGEN 6 MG/DL (7-18); C REACTIVE PROTEIN QUANTITATIV 1.05 MG/DL (0.00-0.30); CALCIUM LEVEL 9.1 MG/DL (8.8-10.2); CARBON DIOXIDE LEVEL 32 MEQ/L (21-32); CHLORIDE LEVEL 103 MEQ/L (98-107); CREATININE FOR GFR 0.52 MG/DL (0.55-1.30); FERRITIN 22 NG/ML (8-252); FREE T4 0.99 NG/DL (0.76-1.46); GLOMERULAR FILTRATION RATE > 60.0 (>39); GLUCOSE, FASTING 80 MG/DL (70-100); NT-PRO BNP 210 PG/ML (<125); POTASSIUM SERUM 4.3 MEQ/L (3.5-5.1); SODIUM LEVEL 138 MEQ/L (136-145); THYROID STIMULATING HORMONE 0.722 uIU/ML (0.358-3.740); TOTAL PROTEIN 6.7 GM/DL (6.4-8.2)
[2021-12-05 18:24] LABS: THYROID PEROXIDASE ANTIBODY 32.4 U/ML (<60.0); TOTAL 25(OH) VITAMIN D 9.6 NG/ML (30.0-100.0)
[2021-12-07 07:10] LABS: APOLIPOPROTEIN B/A-1 RATIO 0.7 ratio (0.0-0.6)
== END ==
LOC: M WUC 14:36
PROVIDERS: ATTEND Family Medicine
DX: E78.2 Mixed hyperlipidemia (principal); D50.9 Iron deficiency anemia, unspecified

== ENCOUNTER → 2021-12-21 | Outpatient (CLI) | payer MEDICARE | LOC: M CARPUL 07:41 | PROVIDERS: ATTEND Family Medicine | DX: J44.9 Chronic obstructive pulmonary disease, unspecified (principal) ==

== ENCOUNTER 2022-08-14 09:15 | Day surgery (SDC) | payer MEDICARE ==
[~2022-08-14] VITALS: Ht 157.5 cm; Wt 69.8 kg
[~2022-08-14 09:15] MED LIST changes: +DIPH-435 PO; -DIPH25CA32 PO; +NS 1,000 ML IV ONE
[2022-08-14] MEDS ORDERED: propofoL 200 MG/20 ML VIAL As Ordered ONE ×2 (11:29→11:41)
[2022-08-14 12:24] VITALS: BP 152/70; O2SAT 95
== END 2022-08-14 12:43 | disposition home or self-care (01) ==
LOC: M OPP 09:15
PROVIDERS: ATTEND Internal Medicine Gastroenterology
DX: Z12.11 Encounter for screening for malignant neoplasm of colon (principal); Z86.010 Personal history of colon polyps; D12.6 Benign neoplasm of colon, unspecified; K64.0 First degree hemorrhoids; K57.30 Diverticulosis of large intestine without perforation or abscess without bleeding; F17.200 Nicotine dependence, unspecified, uncomplicated; Z79.02 Long term (current) use of antithrombotics/antiplatelets; Z79.52 Long term (current) use of systemic steroids; Z79.891 Long term (current) use of opiate analgesic; Z88.3 Allergy status to other anti-infective agents; Z88.5 Allergy status to narcotic agent; Z91.013 Allergy to seafood

== ENCOUNTER → 2022-08-28 | Outpatient (REF) | payer MEDICARE ==
[~2022-08-28] MED LIST changes: -NS 1,000 ML IV ONE
== END ==
LOC: M SFHCPLAZ 19:29
PROVIDERS: ATTEND Family Medicine
DX: E55.9 Vitamin D deficiency, unspecified (principal); I50.32 Chronic diastolic (congestive) heart failure; E78.2 Mixed hyperlipidemia; D50.9 Iron deficiency anemia, unspecified

== ENCOUNTER → 2022-10-09 | Outpatient (CLI) | payer MEDICARE ==
[2022-10-09 09:06] LABS: BASO # 0.1 10^3/uL (0.0-0.2); BASO % 0.8 % (0.0-1.0); EOS # 0.1 10^3/uL (0.0-0.5); EOS % 1.3 % (0.0-3.0); HEMATOCRIT 40.6 % (36.0-47.0); HEMOGLOBIN 13.2 g/dl (12.0-15.5); LYMPH # 2.3 10^3/uL (1.5-5.0); LYMPH % 27.9 % (24.0-44.0); MEAN CORPUSCULAR HEMOGLOBIN 29.7 pg (27.0-33.0); MEAN CORPUSCULAR HGB CONC 32.5 g/dl (32.0-36.5); MEAN CORPUSCULAR VOLUME 91.2 fl (80.0-96.0); MONO # 0.6 10^3/uL (0.0-0.8); MONO % 7.4 % (2.0-8.0); NEUTROPHILS # 5.2 10^3/uL (1.5-8.5); NEUTROPHILS % 62.4 % (36.0-66.0); PLATELET COUNT, AUTOMATED 230 10^3/uL (150-450); RED BLOOD COUNT 4.45 10^6/uL (4.00-5.40); WHITE BLOOD COUNT 8.3 10^3/uL (4.0-10.0)
[2022-10-09 10:42] LABS: ALBUMIN 3.5 G/DL (3.2-5.2); ALKALINE PHOSPHATASE 84 U/L (46-116); ALT/SGPT < 9 U/L (7.0-40); AST/SGOT < 8 U/L (<34); BILIRUBIN,TOTAL 0.5 MG/DL (0.3-1.2); BLOOD UREA NITROGEN 8 MG/DL (9-23); CALCIUM LEVEL 8.8 MG/DL (8.3-10.6); CARBON DIOXIDE LEVEL 30 MMOL/L (20-31); CHLORIDE LEVEL 104 MMOL/L (98-107); CHOLESTEROL LEVEL 133 MG/DL (<200); CHOLESTEROL RISK RATIO 2.45 (<5); CREATININE FOR GFR 0.63 MG/DL (0.55-1.30); FERRITIN 24.4 NG/ML (7.3-270.7); FREE T4 0.97 NG/DL (0.89-1.76); GLOMERULAR FILTRATION RATE > 60.0 (>39); GLUCOSE, FASTING 100 MG/DL (74-106); HDL CHOLESTEROL 54.1 MG/DL (>40); LDL CHOLESTEROL 58.5 MG/DL (<100); NON-HDL-C 78.9 MG/DL; POTASSIUM SERUM 4.3 MMOL/L (3.5-5.1); PTH INTACT 64.7 PG/ML (18.5-88.0); SODIUM LEVEL 140 MMOL/L (136-145); THYROID STIMULATING HORMONE 1.093 uIU/ML (0.55-4.78); TOTAL 25(OH) VITAMIN D 35.4 NG/ML (20.0-100.0); TOTAL PROTEIN 6.1 G/DL (5.7-8.2); TRIGLYCERIDES LEVEL 102 MG/DL (<150); VITAMIN B12 LEVEL 208 PG/ML (211-911)
[2022-10-10 12:08] LABS: H PYLORI SERUM QUANT IgG ABY 0.22 (0.00-0.79); TISSUE TRANSGLUTAMINASE IgA <2 U/mL (0-3)
== END ==
LOC: M CARPUL 08:05
PROVIDERS: ATTEND Family Medicine
DX: I50.32 Chronic diastolic (congestive) heart failure (principal); E55.9 Vitamin D deficiency, unspecified; E78.2 Mixed hyperlipidemia; D50.9 Iron deficiency anemia, unspecified; Z79.899 Other long term (current) drug therapy

== ENCOUNTER → 2022-10-10 | Outpatient (REF) | payer MEDICARE | LOC: M SFHCPLAZ 08:40 | PROVIDERS: ATTEND Family Medicine | DX: Z53.9 Procedure and treatment not carried out, unspecified reason (principal) ==

== ENCOUNTER → 2023-01-26 | Outpatient (REF) | payer MEDICARE ==
[~2023-01-26] MED LIST changes: -OXYB5TAB10 PO; +OXYB5TAB11 PO
== END ==
LOC: M SFHCPLAZ 15:01
PROVIDERS: ATTEND Family Medicine
DX: Z53.9 Procedure and treatment not carried out, unspecified reason (principal)

== ENCOUNTER → 2023-04-05 | Outpatient (CLI) | payer MEDICARE ==
[~2023-04-05] MED LIST changes: -OXYB5TAB11 PO; +OXYB5TAB14 PO
[2023-04-05 16:07] LABS: BASO # 0.1 10^3/uL (0.0-0.2); BASO % 0.6 % (0.0-1.0); EOS # 0.1 10^3/uL (0.0-0.5); EOS % 0.9 % (0.0-3.0); HEMATOCRIT 39.1 % (36.0-47.0); HEMOGLOBIN 12.7 g/dl (12.0-15.5); LYMPH # 3.2 10^3/uL (1.5-5.0); LYMPH % 37.4 % (24.0-44.0); MEAN CORPUSCULAR HEMOGLOBIN 29.9 pg (27.0-33.0); MEAN CORPUSCULAR HGB CONC 32.5 g/dl (32.0-36.5); MONO # 0.4 10^3/uL (0.0-0.8); MONO % 5.1 % (2.0-8.0); NEUTROPHILS # 4.8 10^3/uL (1.5-8.5); NEUTROPHILS % 55.8 % (36.0-66.0); PLATELET COUNT, AUTOMATED 190 10^3/uL (150-450); RED BLOOD COUNT 4.25 10^6/uL (4.00-5.40); WHITE BLOOD COUNT 8.6 10^3/uL (4.0-10.0)
[2023-04-05 16:32] LABS: ALBUMIN 3.8 G/DL (3.2-5.2); ALKALINE PHOSPHATASE 76 U/L (46-116); ALT/SGPT 12 U/L (7.0-40); AST/SGOT 15 U/L (<34); BILIRUBIN,TOTAL 0.5 MG/DL (0.3-1.2); BLOOD UREA NITROGEN 8 MG/DL (9-23); CARBON DIOXIDE LEVEL 32 MMOL/L (20-31); CHLORIDE LEVEL 101 MMOL/L (98-107); CREATININE FOR GFR 0.59 MG/DL (0.55-1.30); GLOMERULAR FILTRATION RATE > 60.0 (>39); GLUCOSE, FASTING 174 MG/DL (74-106); MAGNESIUM LEVEL 1.7 MG/DL (1.8-2.4); POTASSIUM SERUM 3.7 MMOL/L (3.5-5.1); SODIUM LEVEL 139 MMOL/L (136-145); TOTAL PROTEIN 6.1 G/DL (5.7-8.2)
[2023-04-05 16:39] LABS: FERRITIN 44.3 NG/ML (7.3-270.7); VITAMIN B12 LEVEL 470 PG/ML (211-911)
== END ==
LOC: M PLALAB 12:59
PROVIDERS: ATTEND Family Medicine
DX: I50.32 Chronic diastolic (congestive) heart failure (principal); E53.8 Deficiency of other specified B group vitamins

== ENCOUNTER → 2023-05-04 | Outpatient (REF) | payer MEDICARE | LOC: M SFHCPLAZ 16:27 | PROVIDERS: ATTEND Family Medicine | DX: I50.32 Chronic diastolic (congestive) heart failure (principal); E53.8 Deficiency of other specified B group vitamins; E78.2 Mixed hyperlipidemia ==

== ENCOUNTER → 2023-05-31 | Outpatient (CLI) | payer MEDICARE ==
[2023-05-31 11:40] LABS: BASO # 0.1 10^3/uL (0.0-0.2); BASO % 0.8 % (0.0-1.0); EOS # 0.1 10^3/uL (0.0-0.5); EOS % 1.5 % (0.0-3.0); HEMOGLOBIN 12.7 g/dl (12.0-15.5); LYMPH # 3.3 10^3/uL (1.5-5.0); LYMPH % 37.2 % (24.0-44.0); MEAN CORPUSCULAR HEMOGLOBIN 30.2 pg (27.0-33.0); MEAN CORPUSCULAR HGB CONC 33.4 g/dl (32.0-36.5); MEAN CORPUSCULAR VOLUME 90.3 fl (80.0-96.0); MONO # 0.6 10^3/uL (0.0-0.8); MONO % 6.4 % (2.0-8.0); NEUTROPHILS # 4.8 10^3/uL (1.5-8.5); NEUTROPHILS % 53.8 % (36.0-66.0); PLATELET COUNT, AUTOMATED 221 10^3/uL (150-450); RED BLOOD COUNT 4.21 10^6/uL (4.00-5.40)
[2023-05-31 12:08] LABS: ERYTHROCYTE SEDIMENTATION RATE 11 mm/hr (0-30)
== END ==
LOC: M WUC 10:06
PROVIDERS: ATTEND Optometrist
DX: M31.6 Other giant cell arteritis (principal); H34.00 Transient retinal artery occlusion, unspecified eye

== ENCOUNTER → 2023-05-31 | Outpatient (CLI) | payer MEDICARE ==
[2023-05-31 11:40] LABS: BASO # 0.1 10^3/uL (0.0-0.2); BASO % 0.9 % (0.0-1.0); EOS # 0.1 10^3/uL (0.0-0.5); EOS % 1.6 % (0.0-3.0); HEMATOCRIT 37.8 % (36.0-47.0); HEMOGLOBIN 12.6 g/dl (12.0-15.5); LYMPH # 3.4 10^3/uL (1.5-5.0); LYMPH % 37.3 % (24.0-44.0); MEAN CORPUSCULAR HEMOGLOBIN 30.5 pg (27.0-33.0); MEAN CORPUSCULAR HGB CONC 33.3 g/dl (32.0-36.5); MEAN CORPUSCULAR VOLUME 91.5 fl (80.0-96.0); MONO # 0.6 10^3/uL (0.0-0.8); MONO % 6.6 % (2.0-8.0); NEUTROPHILS # 4.8 10^3/uL (1.5-8.5); PLATELET COUNT, AUTOMATED 220 10^3/uL (150-450); RED BLOOD COUNT 4.13 10^6/uL (4.00-5.40)
[2023-05-31 12:07] LABS: CHOLESTEROL RISK RATIO 2.12 (<5); FREE T4 1.16 NG/DL (0.89-1.76); HDL CHOLESTEROL 60.1 MG/DL (>40); LDL CHOLESTEROL 42.7 MG/DL (<100); MAGNESIUM LEVEL 1.8 MG/DL (1.8-2.4); NON-HDL-C 67.9 MG/DL; THYROID STIMULATING HORMONE 1.018 uIU/ML (0.55-4.78)
[2023-05-31 12:08] LABS: FERRITIN 28.7 NG/ML (7.3-270.7)
== END ==
LOC: M WUC 10:01
PROVIDERS: ATTEND Family Medicine
DX: E53.8 Deficiency of other specified B group vitamins (principal); E78.2 Mixed hyperlipidemia; I50.32 Chronic diastolic (congestive) heart failure; M31.6 Other giant cell arteritis; H34.00 Transient retinal artery occlusion, unspecified eye

== ENCOUNTER → 2023-07-25 | Outpatient (CLI) | payer MEDICARE ==
[~2023-07-25] MED LIST changes: +CVS10CAP7 PO; +FURO20TA2 PO; +VITAD400CA FT
[2023-07-25 16:39] LABS: BASO # 0.1 10^3/uL (0.0-0.2); BASO % 0.8 % (0.0-1.0); EOS # 0.4 10^3/uL (0.0-0.5); EOS % 3.3 % (0.0-3.0); HEMOGLOBIN 12.6 g/dl (12.0-15.5); LYMPH # 3.5 10^3/uL (1.5-5.0); LYMPH % 30.9 % (24.0-44.0); MEAN CORPUSCULAR HEMOGLOBIN 30.1 pg (27.0-33.0); MEAN CORPUSCULAR HGB CONC 32.3 g/dl (32.0-36.5); MEAN CORPUSCULAR VOLUME 93.1 fl (80.0-96.0); MONO # 0.7 10^3/uL (0.0-0.8); MONO % 6.2 % (2.0-8.0); NEUTROPHILS # 6.6 10^3/uL (1.5-8.5); NEUTROPHILS % 58.4 % (36.0-66.0); PLATELET COUNT, AUTOMATED 277 10^3/uL (150-450); RED BLOOD COUNT 4.19 10^6/uL (4.00-5.40); WHITE BLOOD COUNT 11.2 10^3/uL (4.0-10.0)
[2023-07-25 16:46] LABS: ALBUMIN 3.4 G/DL (3.2-5.2); ALKALINE PHOSPHATASE 107 U/L (46-116); ALT/SGPT 12 U/L (7.0-40); AST/SGOT 12 U/L (<34); BILIRUBIN,TOTAL 0.4 MG/DL (0.3-1.2); BLOOD UREA NITROGEN 8 MG/DL (9-23); CALCIUM LEVEL 9.4 MG/DL (8.3-10.6); CARBON DIOXIDE LEVEL 31 MMOL/L (20-31); CHLORIDE LEVEL 104 MMOL/L (98-107); CREATININE FOR GFR 0.51 MG/DL (0.55-1.30); GLOMERULAR FILTRATION RATE > 60.0 (>39); GLUCOSE, FASTING 110 MG/DL (74-106); POTASSIUM SERUM 3.5 MMOL/L (3.5-5.1); SODIUM LEVEL 141 MMOL/L (136-145); TOTAL PROTEIN 6.1 G/DL (5.7-8.2)
[2023-07-25 16:49] LABS: INR 0.98; PROTHROMBIN TIME 12.7 SECONDS (12.5-14.5)
[2023-07-25 17:44] LABS: CA19-9 TUMOR MARKER,CARBOHYDRA 4002.7 U/ML (<35.0)
== END ==
LOC: M WUC 10:39
PROVIDERS: ATTEND Physician Assistant Medical
DX: K86.89 Other specified diseases of pancreas (principal); R16.0 Hepatomegaly, not elsewhere classified; C25.9 Malignant neoplasm of pancreas, unspecified; R97.8 Other abnormal tumor markers

== ENCOUNTER → 2023-07-26 | Outpatient (REF) | payer MEDICARE | LOC: M LABWUC 16:08 | PROVIDERS: ATTEND Physician Assistant Medical | DX: K86.89 Other specified diseases of pancreas (principal); C25.9 Malignant neoplasm of pancreas, unspecified; R10.13 Epigastric pain ==

== ENCOUNTER → 2023-07-31 | Outpatient (REF) | payer MEDICARE | LOC: M SFHCPLAZ 12:24 | PROVIDERS: ATTEND Family Medicine | DX: I50.32 Chronic diastolic (congestive) heart failure (principal); E53.8 Deficiency of other specified B group vitamins; E78.2 Mixed hyperlipidemia ==

== ENCOUNTER → 2023-09-06 | Outpatient (CLI) | payer MEDICARE | LOC: M PLAIMG 13:08 | PROVIDERS: ATTEND Family Medicine | DX: K59.09 Other constipation (principal); C25.1 Malignant neoplasm of body of pancreas ==